=== PATIENT | female | born 1995 | race Caucasian/White ===

== ENCOUNTER 2023-07-26 08:18 | Outpatient (RCR) | payer MEDICAID, SELFPAY | END 2023-10-22 23:59 | disposition home or self-care (01) | LOC: ANHLAB 08:18 | PROVIDERS: Visit Provider Advanced Practice Midwife | DX: O20.0 Threatened abortion (principal); C82.90 Follicular lymphoma, unspecified, unspecified site; Z3A.00 Weeks of gestation of pregnancy not specified | CPT/HCPCS: 36415; 84702; 85461; 86850; 86900; 86901 ==

== ENCOUNTER 2024-03-18 15:54 | Inpatient (IN) | payer OTHER, MEDICAID, SELFPAY ==
[2024-03-18] VITALS (14 sets, daily range): BP systolic 113–133; BP diastolic 46–92; PULSE 77–93; RESP 20; TEMP 36.4–37.1; BMI 39.5
--- NOTE | 2024-03-18 15:54 | LDADM ---
This patient, Chasity Li, was admitted to Labor/Delivery/Recovery 102 on 03/18/24 at 15:54. Plans for labor, pain management and were discussed with patient. Patient/family oriented to hospital policies and general routines including ID bracelet, bed and alarms, visiting hours, pain management, procedures, bathroom and other care routines, personal items, smoking policy, room service/diet and guest tray routines, infant security routines, and visiting hours. Patient/Family are encouraged to report perceived risks to care and to ask questions if they do not understand what they are told or what they should do. See OBIX for further documentation.
[2024-03-18 16:55] LABS: Basophils Percent Auto 0.3 % (0.2-1.2); Eosinophils Percent Auto 0.4 % (0-4.4); Hematocrit 37.8 % (37.0-47.0); Hemoglobin 12.9 g/dL (12.0-15.0); Immature Granulocyte Absolute 0.06 K/mm3 (0.00-0.031); Immature Granulocyte Percent A 0.6 % (0-0.5); Lymphocytes Absolute Auto 2.09 K/mm3 (0.9-3.2); Lymphocytes Percent Auto 20.1 % (18.3-44.2); Mean Corpuscular HGB Conc 34.1 g/dl (32-36); Mean Corpuscular Hemoglobin 28.7 pg (26-34); Mean Corpuscular Volume 84.2 fl (80-100); Monocytes Absolute Auto 0.8 K/mm3 (0.1-0.6); Monocytes Percent Auto 7.5 % (2.6-8.5); Neutrophils Absolute Auto 7.4 K/mm3 (1.3-6.7); Neutrophils Percent Auto 71.1 % (45.5-73.1); Platelet Count Result 213 k/mm3 (150-375); Red Blood Count 4.49 M/mm3 (4.2-5.4); Red Cell Distribution Width 13.7 % (11.5-14.5); White Blood Count 10.4 K/mm3 (4.5-10.0)
--- NOTE | 2024-03-18 17:02 | P.PNAN_ITS ---
Anes - Eval Pre Procedure Procedure: Labor epidural Date/Time: 03/18/24 17:02 Surgeon: Leo Preop Diagnosis: Abdominal pain with contractions Pre Op Diagnosis: Induction of Labor Patient Data Age: 28 Gender: F Height: Weight: Last Vital Signs Pulse 90 03/18/24 16:57 BP 133/74 03/18/24 16:57 Allergies Allergy/AdvReac Type Severity Reaction Status Date / Time No Known Allergies Allergy Verified 03/04/24 12:39 Home Medications Medication Instructions Recorded Confirmed Type prenat.vits,stefani,khr-kzic-owkco 1 tablet 03/04/24 History sertraline 50 mg tablet 50 mg PO DAILY 03/04/24 03/04/24 History Laboratory Tests 03/18/24 16:25 WBC Pending RBC Pending Hgb Pending Hct Pending MCV Pending MCH Pending MCHC Pending RDW Pending Plt Count Pending MPV Pending Immature Gran % (Auto) Pending Neut % (Auto) Pending Lymph % (Auto) Pending [place] % (Auto) Pending Eos % (Auto) Pending Baso % (Auto) Pending Lymph # (Auto) Pending [place] # (Auto) Pending Eos # (Auto) Pending Baso # (Auto) Pending Abs Immat Gran (auto) Pending Absolute Neuts (auto) Pending Absolute Nucleated RBC Pending Nucleated RBC % Pending RPR Pending HIV 1&2 Ab/P24 Ag 4thGn Pending : gestational age HCG: positive Patient hx anesthesia problems: none Family hx anesthesia problems: none Results Review: All pre-operative results and documents have been reviewed as part of the pre- operative evaluation. [facility] Past Medical History Medical History (Updated 03/18/24 @ 17:03 by Michael Russo Jr., CRNA) and not yet delivered Surgical History Surgical History (Updated 03/18/24 @ 17:03 by Michael Russo Jr., CRNA) S/P anal fissurectomy Family History Family History (Updated 03/04/24 @ 12:42 by Tanya Lorenzana RN) Sibling Brain aneurysm Father Heart disease Mother Heart disease Social History Social History Substance use: former Spiritual care concerns: No Exam Day of Procedure 03/18/24 17:02
[2024-03-18] MEDS: miSOPROStol 25 MCG TABLET 50 MCG BUCCAL ×2 (17:06→21:23)
[2024-03-18 17:58] LABS: HIV 1/2 Ab P24 Ag Result Negative (Negative)
[2024-03-19] VITALS (127 sets, daily range): BP systolic 88–147; BP diastolic 39–98; PULSE 58–105; TEMP 36.6–37.4; O2SAT 96–100
[2024-03-19] MEDS: miSOPROStol 25 MCG TABLET 50 MCG BUCCAL ×3 (01:27→09:40)
[2024-03-19] MEDS: LACTATED RINGERS 1,000 ML 125 ML IV CONT ×3 (08:38→22:37)
[2024-03-19 08:40] LABS: Rapid Plasma Reagin Non-Reactive (NonReactive)
--- NOTE | 2024-03-19 13:43 | PM.IMHP ---
H&P: HPI History of Present Illness Date/Time: 03/18/24 16:30 Chief Complaint: elective induction of labor Narrative: Patient is a 28 year old at 39 weeks who presents for elective induction of labor. has been complicated by depression on sertraline and marginal cord insertion. Growth US have been within normal limits. She denies strong contractions, reports good movement. No nausea, vomiting, abdominal pain. Review of Systems Review of Systems: All systems reviewed & are unremarkable except as noted in HPI and below PMFSH Past Medical History Medical History Anxiety and not yet delivered Surgical History Surgical History S/P anal fissurectomy Family History Family History Sibling Brain aneurysm Father Heart disease Mother Heart disease Social History Social History Smoking status: Never smoker Substance use: former Do You Feel Safe in your Home?: Yes Lack of Transportation: No Lack of Food: Never True Current Housing: I Have Housing Concerned About Future Housing: No Difficulty Paying Gas/Electric Bills: No Difficulty Paying for Meds: No Currently Unemployed: No Education: Master's Degree or Higher Difficulty w/ Childcare or Family Care: No Spiritual care concerns: No Meds Home Medications and Allergies Home Medications Medication Instructions Recorded Confirmed Type prenat.vits,stefani,qfv-aoct-wuvxq 1 tablet PO DAILY 03/04/24 03/18/24 History sertraline 50 mg tablet 50 mg PO DAILY 03/04/24 03/04/24 History Allergies Allergy/AdvReac Type Severity Reaction Status Date / Time No Known Allergies Allergy Verified 03/04/24 12:39 Vital Signs Vital Signs - 24 hr 03/18/24 17:12 03/18/24 16:57 03/18/24 17:15 Temperature 98.7 F Pulse Rate 93 90 93 Respiratory Rate 20 Blood Pressure 128/69 133/74 128/69 Oxygen Delivery 03/18/24 16:58 03/18/24 17:31 03/18/24 17:45 Temperature 98.7 F Pulse Rate 81 84 Respiratory Rate Blood Pressure 130/92 H 118/69 Oxygen Delivery 03/18/24 18:00 03/18/24 18:30 03/18/24 19:00 Temperature Pulse Rate 82 78 88 Respiratory Rate Blood Pressure 121/72 129/72 123/72 Oxygen Delivery 03/18/24 19:30 03/18/24 20:00 03/18/24 20:30 Temperature 97.6 F Pulse Rate 77 78 81 Respiratory Rate Blood Pressure 123/61 124/68 123/46 L Oxygen Delivery 03/18/24 21:00 03/18/24 21:30 03/19/24 00:00 Temperature 97.8 F Pulse Rate 89 81 76 Respiratory Rate Blood Pressure 113/70 129/76 125/66 Oxygen Delivery 03/19/24 00:30 03/19/24 01:00 03/19/24 01:32 Temperature Pulse Rate 68 67 82 Respiratory Rate Blood Pressure 125/78 112/70 112/63 Oxygen Delivery 03/19/24 02:01 03/19/24 02:30 03/19/24 03:00 Temperature Pulse Rate 60 75 70 Respiratory Rate Blood Pressure 103/47 L 104/62 111/51 L Oxygen Delivery 03/19/24 03:30 03/19/24 04:01 03/19/24 04:30 Temperature Pulse Rate 60 58 L 77 Respiratory Rate Blood Pressure 107/71 113/57 L 123/76 Oxygen Delivery 03/19/24 05:00 03/19/24 02:00 03/19/24 04:00 Temperature 98 F 97.9 F Pulse Rate 75 Respiratory Rate Blood Pressure 115/68 Oxygen Delivery 03/19/24 06:01 03/19/24 06:30 03/19/24 07:00 Temperature 98.4 F Pulse Rate 63 61 61 Respiratory Rate Blood Pressure 113/53 L 112/59 L 110/48 L Oxygen Delivery 03/19/24 07:30 03/19/24 08:43 03/19/24 09:00 Temperature Pulse Rate 66 76 89 Respiratory Rate Blood Pressure 102/64 122/70 125/75 Oxygen Delivery 03/19/24 10:00 03/19/24 10:30 03/19/24 11:00 Temperature Pulse Rate 91 83 90 Respiratory Rate Blood Pressure 134/76 121/80 133/72 Oxygen Delivery 03/19/24 11:
--- NOTE | 2024-03-19 13:57 | PM.OBPNLAB ---
Pain Control Date/time seen: 03/19/24 13:57 Pelvic Exam Dilation (cm): 1 Effacement (%): 60 station: -3 Amniotic membrane status: Intact Comments: Rice bulb placed without issue, 50cc inflated into balloon Assessment and Plan Assessment: induction ongoing Plan: continuous present management Comments: Will start pitocin after cytotec
[2024-03-19] MEDS: OXYTOCIN 30 UNITS/NS 500 ML 30 UNITS/500 ML BAG IV CONT (14:09)
--- NOTE | 2024-03-19 18:00 | PM.OBPNLAB ---
Pain Control Date/time seen: 03/19/24 18:00 Pelvic Exam Dilation (cm): 4 Effacement (%): 75 station: -3 Amniotic membrane status: Ruptured Comments: large amount of clear fluid
[2024-03-19] MEDS: SERTRALINE HCL 50 MG TABLET PO (22:27)
[2024-03-20] VITALS (100 sets, daily range): BP systolic 104–148; BP diastolic 49–88; PULSE 63–133; RESP 16; TEMP 36.8–37.5; O2SAT 95–100
[2024-03-20] MEDS: OXYTOCIN 30 UNITS/NS 500 ML 30 UNITS/500 ML BAG 125 UNITS IV CONT (08:11)
--- NOTE | 2024-03-20 09:08 | PM.OBPRVD ---
OB - Vaginal Delivery Note Procedure Delivery date: 03/20/24 Events: Elective Induction of Labor Induction method: Per Misoprostol Protocol Delivery augmentation: Rupture of Membranes and Pitocin Delivery monitor: External FHT and Internal Uterine Route of delivery: Episiotomy description: None Laceration Description: Perineal - 2nd Degree Delivery repair: vicryl Specimen: No Quantitative Blood Loss (ml): 150 Anesthesia type: Epidural (with local for laceration repair) Disposition: Floor Complications: No immediate complications Narrative: See H&P and notes for details on patient's admission and labor. She progressed to complete cervical dilation and at the appropriate time began pushing. With adequate expulsive efforts by the mother, the baby's head was delivered without difficulty. Nuchal cord was not present. The baby's right shoulder was anterior and delivered under the pubic symphysis without difficulty. The posterior shoulder and the rest of the baby delivered without difficulty. The umbilical cord was doubly clamped and cut after 60 seconds of delayed cord clamping. Care of the infant was then assumed by the nursing staff. [place] Baby Date of : 03/20/24 Weeks of gestation at delivery: 39 Infant gender: Male presentation: vertex position: Left Occiput Anterior Placenta delivery description: Expressed Cord Vessel Description: 3 Vessels and Delayed Cord Clamping
[2024-03-20] MEDS: IBUPROFEN 600 MG TABLET PO ×2 (10:16→18:32)
[2024-03-20] MEDS: WITCH HAZEL 40 PADS 1 PAD TOPICAL (10:17)
[2024-03-20] MEDS: BENZOCAINE 20% AER SPR (*SP) 56 GM CAN 1 SPRAY TOPICAL (10:17)
--- NOTE | 2024-03-20 11:55 | PC.NURSE ---
Consulted with patient to assess needs related to . Discussed with mother her successes, concerns and any questions she has. We reviewed working with the , unwrapping to wake, supporting breast, protecting her nipples with an optimal deep latch, good positioning. Encouraged understanding the benefits of skin to skin, responding to feeding cues, frequencies of feeding 8-12 times in 24 hours (approximately 2-3 hours), duration of feedings, intake/output feeding sheet. Reviewed positioning and alignment, supporting breast, off-centered (asymmetrical latch) and leading with the chin with big, open, wide gape. Infant latched to the [right] breast in cradle] position. He was off and on a few times and mother said she felt a pinch. We relatched and mother held her breast with a C hold. Advised she may have to continue to provide that bite to baby until he is more consistently sucking. The infant was [able] to maintain latch without discomfort to mother. Nipple care reviewed with optimal latch, good positioning and not allowing to continue to suck if their is pain. Resources used to facilitate learning were used from the [mom and baby guide]. Mother voiced understanding of the education shared, to call for assistance if the infant does not latch or if there is discomfort with . Reported to the Primary RN.
--- NOTE | 2024-03-20 16:41 | OBPPTRN ---
1055-Patient transferred to post room #289 via wheelchair. Support person present. Oriented to unit, room, information board, rooming in, admission packet and security measures. Patient verbalizes understanding.
--- NOTE | 2024-03-20 17:50 | PC.NURSE ---
Consulted with patient to assess needs related to . Discussed with mother her successes, concerns and any questions she has. We reviewed working with the , supporting breast, protecting her nipples with an optimal deep latch, good positioning. Reviewed positioning and alignment, supporting breast, off-centered (asymmetrical latch) and leading with the chin with big, open, wide gape. Infant latched optimally to the [right] breast in [cross cradle] position. did come off and on the breast several times before maintaining a deep latch. Education given to the mother of how to visualize the suckling (with good rocking jaw motion) swallows (dropping of the lower jaw) and how to listen for drinking at the breast (the ka sound). The infant was [able] to maintain latch. Nipple care reviewed with optimal latch, good positioning. Mother has a wearable breast pump that she has questions about. Advised that we can look at it together before discharge and if a pump is needed in the hospital, we may need to use the hospital grade Medela pump. Mother voiced understanding of the education shared, to call for assistance if the infant does not latch or if there is discomfort with . Reported to the Primary RN.
[2024-03-20] MEDS: ACETAMINOPHEN 325 MG TABLET 650 MG PO (18:31)
[2024-03-21 02:03] VITALS: TEMP 37.3
[2024-03-21] MEDS: IBUPROFEN 600 MG TABLET PO ×3 (02:03→17:36)
[2024-03-21] MEDS: ACETAMINOPHEN 325 MG TABLET 650 MG PO (02:03)
[2024-03-21 05:03] LABS: Hematocrit 36.1 % (37.0-47.0); Hemoglobin 11.7 g/dL (12.0-15.0)
[2024-03-21 08:40] VITALS: BP 102/53; PULSE 80; RESP 16; TEMP 36.8; O2SAT 99
--- NOTE | 2024-03-21 09:00 | PC.NURSE ---
Breast pump provided due to ineffective feeding. Instructions given on cleaning, care, usage, that there should be no pain, pumping schedule for milk production, collection, and storage of human milk. Patient was assessed for correct placement, flange size, to pump for comfort and nipple stretching/stimulation for adequate milk production every 3 hours (8 times in 24 hours) 1-2 times at night. Parents are encouraged to record the pumping schedule on the feeding sheet.?Mother voiced understanding of the education shared along with mom/baby. Discussed feeding plan of . Mother is to attempt to breastfeed for 15 min then supplement with 15cc's of formula and pump for 15 minutes. Mother verbalized understanding at this time
--- NOTE | 2024-03-21 09:09 | PM.OBPNVD ---
OB - PN: Subj Subjective Date/time seen: 03/21/24 09:09 Patient comments: no complaints, pain well controlled, incisional pain, tolerating diet and flatus present OB - PN: Obj Data Labs 03/21/24 04:52 Labs: Laboratory Results - last 24 hr 03/21/24 04:52 Hgb 11.7 L Hct 36.1 L OB - PN A/P Plan day: 1 Plan: routine care Comments: No problems, routine care Time Spent With Patient Time: Total time spent is greater than 50% in coordination of care (as documented) at patient's floor/unit and/or counseling patient: Exam Const: General: comfortable, no acute distress and alert Resp: Effort & Inspection: normal respiratory effort Auscultation: no crackles, no rales and no rhonchi Cardio: Rate: regular rate Heart sounds: no click, no murmurs and no rubs GI: Inspection: non-distended GI Palp: No Tenderness to palpation present (GI) Auscultation: normal bowel sounds Other: Incision - CDI Extrem: General: normal to inspection, no pedal edema and no calf tenderness
[2024-03-21] MEDS: DOCUSATE SODIUM 100 MG CAPSULE PO ×2 (09:30→17:36)
[2024-03-21] MEDS: MULTIVIT/MIN/PREN/FOL AC/IRON TABLET 1 TAB PO (09:30)
[2024-03-21] MEDS: SERTRALINE HCL 50 MG TABLET PO (09:30)
--- NOTE | 2024-03-21 10:49 | WPDANLDPN2 ---
Anes-Prog Note L&D Date/Time: 03/21/24 10:49 Comfortable throughout: labor and delivery Neuraxial method: epidural Epidural/Spinal procedure site: clean & non-tender Neuro status: Neuro function grossly intact. Cardiovascular status: normal Respiratory status: normal Airway patency: baseline Mental status: baseline Post-Op hydration status: normal Vital Signs: Last Vital Signs Temp 36.8 C 03/21/24 08:40 Pulse 80 03/21/24 08:40 Resp 16 03/21/24 08:40 BP 102/53 L 03/21/24 08:40 Pulse Ox 99 03/21/24 08:40 O2 Del Method Room Air 03/20/24 11:30 Pain score (VAS): 10 I/O: Intake & Output 03/20/24 03/21/24 03/21/24 23:59 07:59 15:59 Intake Total 100 Balance 100 Post-procedural complaints: none Patient feedback: Patient satisfied with anesthetic care.
[2024-03-21 19:15] VITALS: BP 120/64; PULSE 75; RESP 16; TEMP 36.6; O2SAT 100
[2024-03-21 21:00] VITALS: BP 124/75; PULSE 74; RESP 16; TEMP 36.4; O2SAT 100
--- NOTE | 2024-03-22 06:40 | PC.NURSE ---
0600- pt states that she watched the OB discharge video and has 10 minutes left to view. [place] MARTINEZ aware.
--- NOTE | 2024-03-22 07:44 | PM.OBPNVD ---
OB - PN: Subj Subjective Date/time seen: 03/22/24 07:44 Interval history: PPD#2 Doing well, no issues Pain well controlled Tolerating general diet Ready for discharge home OB - PN: Obj Data Labs 03/21/24 04:52 OB - PN A/P Assessment and Plan (1) (spontaneous vaginal delivery): Code(s): O80 - Encounter for full-term uncomplicated delivery Status: Acute Plan day: 2 Plan: routine care and discharge home Time Spent With Patient Time: Total time spent is greater than 50% in coordination of care (as documented) at patient's floor/unit and/or counseling patient: Review of Systems Review of Systems: All systems reviewed & are unremarkable except as noted in HPI and below Exam Const: General: comfortable and no acute distress Orientation/consciousness: patient oriented x3 Resp: Effort & Inspection: normal respiratory effort
--- NOTE | 2024-03-22 07:49 | PM.OBDSVD ---
DS: Admitting Diagnosis Discharge Date 03/22/24 Admitting Diagnosis elective induction of labor DS: Discharge Diagnosis Discharge Diagnosis (1) (spontaneous vaginal delivery): Code(s): O80 - Encounter for full-term uncomplicated delivery Status: Acute OB - DS: Summary OB Procedures : None OB Procedures Intrapartum: Spontaneous Vag Delivery OB Procedures: : None Peripartum Data Laceration Description: Perineal - 2nd Degree Episiotomy description: None Time Spent with Patient Time attestation: Total time spent providing and/or coordinating discharge services: Discharge Plan Discharge Attending physician on discharge: Amado Bailey Discharging Clinician: Amado Bailey Patient Disposition: Home, Self-Care Activity: may shower, as tolerated and pelvic rest Diet: as tolerated Patient Instructions: Antibiotic Form Stand Alone Forms: General Discharge Information Follow-up/Referrals: Amado Bailey MD [Physician] - 5 Weeks Discharge Medications: New docusate sodium 100 mg Capsule 100 mg PO BID PRN (Reason: Constipation) Qty: 60 0RF ibuprofen 600 mg Tablet 600 mg PO Q6H PRN (Reason: Cramping) Qty: 30 0RF Continued sertraline 50 mg Tablet 50 mg PO DAILY #2 Tablet 1 tablet PO DAILY Date of admission: 03/18/24 15:54 Primary Care Provider: UNKNOWN,DOCTOR Admitting Provider: Amado Bailey Attending physician on admission: Amado Bailey Condition: Stable
[2024-03-22 08:35] VITALS: BP 127/80; PULSE 66; RESP 18; TEMP 36.8; O2SAT 96
--- NOTE | 2024-03-22 10:00 | PC.NURSE ---
Consulted with mother concerning needs and she shared her ability to independently latch infant. She is also pumping and supplementing with the breastmilk she gets and with formula. She did not put him to breast this morning. Encouraged her to call for a latch check before discharge. She has concerns about how much baby is getting at the breast. Encouraged listening for swallows, feeling like infant emptied her breast at feedings, and watching output and stool transition. Mother is feeding appropriately for growth of infant and understands stimulating infant to eat if needed. Infant has had appropriate feedings in the last 24 hours meets the outcomes for weight, output, blood sugar and jaundice at this time. Reinforced understanding of milk production, transition of milk, signs of adequate intake, transition of stool, prevention/relief of engorgement, the different methods of stimulating to breastfeed 1-3 hours after the start of the last feeding, community resources, and when to call a provider using the resource of the feeding sheet along with the mom and baby guide. Mother voiced understanding of the information shared, is confident to continue effectively her at home, when to call for assistance, denies any additional assistance or education at this time. Reported to the Primary RN.
--- NOTE | 2024-03-22 13:25 | PC.NURSE ---
Patient viewed the discharge video Mother & Baby Care, The First Two Weeks . Patient was given the opportunity and encouraged to ask questions. Patient verbalized understanding of information shared and has been given the mother/baby guide for home reference.
[2024-03-23 14:57] VITALS: BP 131/79; PULSE 71; RESP 18; TEMP 36.7; O2SAT 98
== END 2024-03-22 13:55 | disposition home or self-care (01) | DRG 807 ==
LOC: ANHLDR 03-19 00:19 → ANHOB2 03-20 10:57
PROVIDERS: Admitting Provider Obstetrics & Gynecology; Visit Provider Obstetrics & Gynecology
DX: O43.123 Velamentous insertion of umbilical cord, third trimester (principal); Z37.0 Single live birth; O99.344 Other mental disorders complicating childbirth; F32.A Depression, unspecified; O70.1 Second degree perineal laceration during delivery; Z3A.39 39 weeks gestation of pregnancy
CPT/HCPCS: 36415; 85014; 85018; 85025; 86592; 86703; 86850; 86900; 86901; A9270; G0432; J2590; J2795; J7120